=== PATIENT | female | born 1985 | race Caucasian/White ===

== ENCOUNTER 2019-01-14 17:26 | Inpatient (IN) | payer BC ==
[2019-01-14] MEDS ORDERED: Lactated Ringers 1000 ML Bag* 1,000 ML IV ONE (18:36)
[2019-01-14] MEDS ORDERED: Buffered Lidocaine 1% SYRIN* 1 ML/SYRINGE INTRADERM ONE (18:36)
--- NOTE | 2019-01-14 18:49 | HP ---
General Information - General Information Maternal Age: 33 Grav: 2 Para: 1 SAB: 0 IEA: 0 Estimated Due Date: 01/31/19 Determined By: LMP Gestational Age in Weeks/Days: 37+4 Maternal Blood Type and Rh: O Negative - Results this Serology/RPR Result: Non-Reactive Rubella Result: Immune HBsAg Result: Negative HIV Result: Negative GBS Culture Result: Negative Past Medical History Delivery History: Hx Uncomplicated Vaginal Delivery Pertinent Past Medical History: Non-Contributory Pertinent Past Surgical History: - Past Surgical History Comment: wisdom tooth extraction Family History Comment: Grave's disease Gout Thyroid disease Throat cancer Parkinson's Spinal stenosis - Antepartal Records Antepartal Records: Reviewed, Complicated by: - anemia (hgb 9.7) Review of Systems Constitutional: Comfortable CV Complaint: No Respiratory: Shortness of Breath: No Gastrointestinal: No Nausea/Vomiting, Normal Bowel Movement Genitourinary: Leaking Fluid, No Dysuria, No Bleeding Musculoskeletal: Back Pain, Contractions Neurological: No Headache, No Visual Changes Movement: Normal Exam Allergies/Adverse Reactions: Allergies No Known Allergies Allergy (Verified 02/02/14 02:16) 99.8, RR 20, 137/64, HR 99 Lab Values - Entire Visit: Laboratory Tests 01/14/19 17:49 Vag Amniotic Fld Detect Positive - Measurements Height: 5 ft 6 in Weight: 190 lb Weight in lbs: [phone] Body Mass Index (BMI): 30.7 Pre- Weight: 135 lb Weight Gained This : 55 lbs and 0 ozs - Exam Breast: Breast Exam Deferred CVA: No CVA Tenderness Extremities: No Edema Heart: Normal Rhythm/Heart Sounds HEENT: No Significant Findings Lungs: Clear Bilaterally Rectal: Rectal Exam Deferred Reflexes: DTR 2+ Targeted Exam Findings Estimated Weight: 7.5lbs Cervical Exam: 1cm Effacement: 60% Station: -1 Presenting Part: Vertex Membrane Status: SROM Amniotic Fluid Evaluation: Positive ROM Plus, Clear EFM Findings - External Monitor Findings Baseline Heart Rate: 140 External Monitor Findings: Accelerations Present, No Pattern of Variable or Late Decelerations, Variability Moderate, Baseline Stable External Monitor Findings Comment: No evidence of metabolic acidemia Contractions: Regular, Mild, 45-90 Seconds - q4-6 mins Assessment/Plan - Assessment 33yo, , IUP@37+4 GBS negative, NKDA, O negative 55lb weight gain this Hx of 8lb 4oz baby@39 weeks SROM, clear fluid No evidence of metabolic acidemia Regular contractions, but pt comfortable - Plan Plan: Admit - Anticipate Vaginal Delivery Plan Comment: Plan: PARQ discussion about expectant management vs. augmentation of labor Pt and opt for augmentation of labor with pitocin Plan to start low dose pitocin Epidural/pain meds prn VE prn Anticipate progression to - Date/Time of Admission Date of Admission: 01/14/19 Time of Admission: 18:00
[2019-01-14] MEDS ORDERED: Oxytocin in LR* 20 UNITS/1,000 ML BAG IVPB SCH (19:00)
[2019-01-14] MEDS ORDERED: Lactated Ringers 1000 ML Bag* 1,000 ML IV SCH (19:00)
[2019-01-14 20:45] LABS: ABS Eosinophils 0.1 10^3/ul (0-0.6); ABS Lymphocytes 1.2 10^3/ul (1.0-4.8); ABS Monocytes 0.4 10^3/ul (0-0.8); ABS Neutrophils 9.1 10^3/ul (1.5-7.7); Eosinophil % 0.7 %; Hematocrit 34 % (35-47); Hemoglobin 11.5 g/dL (12.0-16.0); Lymphocyte % 11.3 %; Mean Corpuscular HGB Conc 34 g/dL (31-36); Mean Corpuscular Hemoglobin 29 pg (27-31); Mean Corpuscular Volume 84 fL (80-97); Mean Platelet Volume 7.9 fL (7.4-10.4); Nucleated Red Blood Cells % 0.2; Platelet Count 183 10^3/uL (150-450); Red Blood Count 3.98 10^6 /uL (3.70-4.87); Red Cell Distribution Width 16 % (10-15); White Blood Count 10.9 10^3/uL (3.5-10.8)
[2019-01-14] MEDS ORDERED: Calcium Carbonate CHEW TAB* 500 MG (TUMS) PO ONE (21:30)
[2019-01-14 22:43] LABS: Urine Benzodiazepine Screen None Detected (None Detect); Urine Opiates Screen None Detected (None Detect)
--- NOTE | 2019-01-15 02:06 | PN ---
Progress Note - Progress Note Date of Service: 01/15/19 Note: S: Pt is breathing through contractions, very uncomfortable Requesting VE and pain medication O: Temp 98.4 VE: 3/70%/-1, clear fluid FHR: 140, moderate variability, occasional decel Ctx: q2 minutes Pitocin turned off A: , IUP@37+5 in active labor Afebrile Regular contractions No evidence of metabolic acidemia Plan: Epidural now. Anesthesia aware. VE PRN Anticipate progression to
[2019-01-15] MEDS ORDERED: OBEPIDURAL* 250 ML EPIDURAL ONE (02:07)
--- NOTE | 2019-01-15 02:40 | PN ---
Progress Note - Progress Note Date of Service: 01/15/19 Note: Very uncomfortable, but coping Feeling pressure, requesting VE VE: 4.5/100/-1 Anesthesia at bedside.
[2019-01-15] MEDS ORDERED: Lactated Ringers 1000 ML Bag* 1,000 ML IV ONE (02:59)
[2019-01-15] MEDS ORDERED: Sodium Citrate/Citric Acid* 15 ML UDC PO PRN (02:59)
[2019-01-15] MEDS ORDERED: Phenylephrine 40 MCG/ML SYRINGE IV PUSH PRN ×2 (02:59)
[2019-01-15] MEDS ORDERED: Lactated Ringers 1000 ML Bag* 1,000 ML IV SCH ×2 (03:00→08:00)
[2019-01-15] MEDS ORDERED: OBEPIDURAL* 250 ML EPIDURAL SCH (03:00)
--- NOTE | 2019-01-15 05:13 | PN ---
Progress Note - Progress Note Date of Service: 01/15/19 Note: S: Pt is comfortable with CEI infusing O: BP 97/60 Temp 98.3 VE: 9.5/100%/-1, serosanguineous fluid FHR: 140, moderate variability, early decels Ctx: q2-3 minutes A: , IUP@37+5 in active labor Afebrile, BP stable Regular contractions No evidence of metabolic acidemia Plan: VE PRN Anticipate progression to
[2019-01-15] MEDS ORDERED: Dibucaine 1% 28.35 GM TUBE PR PRN (07:05)
[2019-01-15] MEDS ORDERED: Witch Hazel PAD* JAR TOPICAL PRN (07:05)
[2019-01-15] MEDS ORDERED: Acetaminophen TAB* 325 MG PO PRN (07:05)
[2019-01-15] MEDS ORDERED: Glycerin ADULT SUPP PR PRN (07:05)
--- NOTE | 2019-01-15 07:44 | PROCNOTE ---
[facility] OB: Delivery Note - Delivery A Date of : 01/15/19 Time of : 06:24 Gestational Age in Weeks and Days at Delivery: 37 Weeks and 5 Days Delivery Method: Spontaneous Vaginal Labor: Spontaneous Amniotic Fluid: Clear Estimated Blood Loss: 1,400 Anesthesia/Analgesia: CEI for Labor Delivered By: Mena Hinojosa - Nursery Level of Nursery: Regular/Bedside - Perineum Perineal Injury: Perineal Laceration, 2nd Degree Perineal Repair: By Delivering Practioner - Events Delivery Events of Note: Pitocin During Labor, Post- Bleeding - Meds Given - Risk for Falls Delivered OB Patient- Risk for Falls: Heavy Bleeding Fall Risk: Patient is at High Risk for Falls - Additional Delivery Notes Additional Delivery Notes: 33 yo at 37+5 weeks admitted for SROM, mild contractions. Low dose pitocin used for augmentation. Progressed to complete, category II FHR tracing. CEI infusing with incomplete relief. Brisk bright red bleeding noted with pushing. Valentine Barahona MD notified and in house. Partial placental abruption suspected. Liveborn male at 0624, OA to HARJINDER. Shoulders followed easily. Large gush with significant clots followed after of body, bleeding then minimal. Fundus firm. Pitocin infusing. EBL 1400mL. to mother's chest, dried and stimulated with spontaneous cry. 's 8 and 9. Cord clamped and then cut by FOB. Spontaneous frankie delivery of what appeared to be an intact placenta; placenta sent to pathology. After careful inspection a second degree perineal laceration was identified and repaired in the usual fashion. Normal anatomy restored, hemostasis achieved. breast feeding. Baby weight 7lbs 14 oz. Mother and infant in stable condition at time of note.
[2019-01-15] MEDS ORDERED: Oxytocin in LR* 20 UNITS/1,000 ML BAG IVPB SCH (08:00)
[2019-01-15] MEDS ORDERED: Simethicone TAB* 80 MG TAB.CHEW PO SCH (08:30)
[2019-01-15] MEDS: Ibuprofen TAB* 600 MG PO PRN ×3 (08:48→21:26)
[2019-01-15] MEDS: Docusate CAP* 100 MG PO SCH ×3 (08:48→21:25)
[2019-01-15 16:52] LABS: ABS Basophils 0.1 10^3/ul (0-0.2); ABS Eosinophils 0.1 10^3/ul (0-0.6); ABS Lymphocytes 1.4 10^3/ul (1.0-4.8); ABS Neutrophils 14.1 10^3/ul (1.5-7.7); Eosinophil % 0.4 %; Hematocrit 30 % (35-47); Hemoglobin 10.1 g/dL (12.0-16.0); Lymphocyte % 8.2 %; Mean Corpuscular HGB Conc 34 g/dL (31-36); Mean Corpuscular Hemoglobin 28 pg (27-31); Mean Corpuscular Volume 85 fL (80-97); Mean Platelet Volume 7.4 fL (7.4-10.4); Platelet Count 196 10^3/uL (150-450); Red Blood Count 3.56 10^6 /uL (3.70-4.87); Red Cell Distribution Width 16 % (10-15); White Blood Count 16.7 10^3/uL (3.5-10.8)
[2019-01-16] MEDS: Ibuprofen TAB* 600 MG PO PRN ×3 (04:28→19:35)
[2019-01-16 07:34] LABS: ABS Basophils 0.1 10^3/ul (0-0.2); ABS Eosinophils 0.1 10^3/ul (0-0.6); ABS Lymphocytes 1.5 10^3/ul (1.0-4.8); ABS Monocytes 0.6 10^3/ul (0-0.8); ABS Neutrophils 11.8 10^3/ul (1.5-7.7); Hematocrit 28 % (35-47); Hemoglobin 9.6 g/dL (12.0-16.0); Lymphocyte % 10.8 %; Mean Corpuscular HGB Conc 34 g/dL (31-36); Mean Corpuscular Hemoglobin 29 pg (27-31); Mean Corpuscular Volume 84 fL (80-97); Mean Platelet Volume 7.8 fL (7.4-10.4); Platelet Count 183 10^3/uL (150-450); Red Blood Count 3.37 10^6 /uL (3.70-4.87); Red Cell Distribution Width 17 % (10-15); White Blood Count 14.2 10^3/uL (3.5-10.8)
[2019-01-16] MEDS: Docusate CAP* 100 MG PO SCH ×3 (09:32→21:00)
[2019-01-16] MEDS: Ferrous Gluconate TAB* 324 MG TAB PO SCH ×2 (09:32→21:00)
[2019-01-17] MEDS: Ibuprofen TAB* 600 MG PO PRN ×2 (01:38→08:19)
[2019-01-17 08:06] VITALS: BP 106/62
[2019-01-17] MEDS: Docusate CAP* 100 MG PO SCH (08:19)
[2019-01-17] MEDS: Ferrous Gluconate TAB* 324 MG TAB PO SCH (08:19)
== END 2019-01-17 11:44 | disposition home or self-care (01) | DRG 560 ==
LOC: MCHOBOUT 17:26 → MCHOB 18:22
PROVIDERS: ADMIT Advanced Practice Midwife; ATTEND Advanced Practice Midwife
PROC: 10E0XZZ Delivery of Products of Conception, External Approach (ICD-10-PCS; principal; 2019-01-15)
PROC: 0KQM0ZZ Repair Perineum Muscle, Open Approach (ICD-10-PCS; 2019-01-15)
DX: O60.13X0 Preterm labor second trimester with preterm delivery third trimester, not applicable or unspecified (principal); O45.93 Premature separation of placenta, unspecified, third trimester; Z37.0 Single live birth; O72.1 Other immediate postpartum hemorrhage; O70.1 Second degree perineal laceration during delivery; O90.81 Anemia of the puerperium; D64.9 Anemia, unspecified; Z3A.37 37 weeks gestation of pregnancy
CPT/HCPCS: 36415; 80307; 84112; 85025; 86850; 86870; 86880; 86900; 86901; 88307; A9270-GY